=== PATIENT | female | born 1975 | race Two or more races ===

== ENCOUNTER 2025-05-06 18:13 | Emergency (ER) | payer MEDICAID, SELFPAY ==
--- NOTE | 2025-05-06 18:20 | EKG_ITS ---
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
[2025-05-06 18:23] VITALS: BP 135/85; PULSE 75; RESP 19; TEMP 36.7; O2SAT 95
[2025-05-06 18:24] VITALS: BMI 28.8
--- NOTE | 2025-05-06 18:35 | XR_ITS ---
Examination: Transvaginal ultrasound of the pelvis, complete Technique: Transvaginal sonographic images pelvis performed using de la cruz scale imaging Exam date and time: May 06, 2025 1947 hours INDICATIONS: Heavy vaginal bleeding 1 year FINDINGS: Uterus 11.7 cm uterine fundal mass 5.4 x 4.2 x 5.1 cm Ovaries obscured by bowel gas IMPRESSION: Findings most consistent with large area of uterine fibroid degeneration, recommend 3-6-month follow-up transvaginal sonography to document the stability of this lesion.
--- NOTE | 2025-05-06 18:35 | PD.EDRME ---
Rapid Medical Screening Exam [facility] Arrival date/time: 05/06/25 18:13 49F with history of heavy menstrual cycles presents to ED with dizziness and fatigue; patient is currently on cycle. Patient has not needed a blood transfusion before. No recent pelvic US. Chief Complaint: Dizziness Vital signs: Vital Signs Temperature 98.0 F 05/06/25 18:23 Pulse Rate 75 05/06/25 18:23 Respiratory Rate 19 05/06/25 18:23 Blood Pressure 135/85 H 05/06/25 18:23 Pulse Oximetry (%) 95 05/06/25 18:23 Oxygen Delivery Method Room Air 05/06/25 18:23
[2025-05-06 18:59] LABS: Basophils # (Auto) 0.1 Thou/mm3 (0.0-0.2); Basophils % (Auto) 1 % (0-2.5); Eosinophils # (Auto) 0.2 Thou/mm3 (0.0-0.5); Eosinophils % (Auto) 2 % (0-10); Hematocrit 28.0 % (36.0-46.0); Immature Granulocytes Auto 0.03 Thou/mm3 (0.00-0.00); Lymphocytes # (Auto) 2.6 Thou/mm3 (1.0-4.8); Lymphocytes % (Auto) 27 % (10-50); Mean Corpuscular HGB Conc 30.7 g/dl (31.0-37.0); Mean Corpuscular Hemoglobin 21.6 pg (25.0-35.0); Mean Corpuscular Volume 70 fL (80-100); Monocytes # (Auto) 0.8 Thou/mm3 (0.0-0.8); Monocytes % (Auto) 8 % (0-12); Neutrophils # (Auto) 5.8 Thou/mm3 (1.8-7.7); Neutrophils % (Auto) 61 % (37-80); Nucleated Red Blood Cell # 0.00 Thou/mm3 (0.00-0.00); Nucleated Red Blood Cell % 0 /100 WBC (0); Platelet Count 319 Thou/mm3 (140-440); RDW Standard Deviation 41.9 fL (36.4-46.3); Red Blood Count 3.99 Miln/mm3 (4.00-5.20); White Blood Count 9.5 Thou/mm3 (3.6-11.0)
[2025-05-06 19:11] LABS: INR 0.9 (0.9-1.3); Partial Thromboplastin Time 27.5 Seconds (22.0-36.0); Prothrombin Time 10.1 Seconds (9.0-12.2)
[2025-05-06 19:23] LABS: Hemoglobin 8.6 g/dL (12.0-16.0)
[2025-05-06 19:27] LABS: Albumin, Serum 4.5 gm/dL (3.5-5.0); Albumin/Globulin Ratio 1.7 (1.2-2.2); Alkaline Phosphatase 63 U/L (46-116); Anion Gap 9 (7-16); Aspartate Amino Transferase 21 U/L (0-34); BUN/Creatinine Ratio 27 Ratio (12-20); Bilirubin,Total 0.3 mg/dL (0.3-1.2); Blood Urea Nitrogen 19 mg/dL (9-23); Calcium 9.3 mg/dL (8.3-10.6); Calcium (Corrected) 9.3 mg/dL (8.5-10.1); Carbon Dioxide 26.5 mMol/L (20.0-31.0); Chloride 103 mMol/L (98-107); Creatinine (Component) 0.7 mg/dL (0.6-1.3); Estimated Creatinine Clearance 100.7 mL/min (>60); Globulin 2.7 gm/dL (2.3-3.5); Glucose 113 mg/dL (74-106); Osmolality,Calculated 278 (275-295); Potassium 4.0 mMol/L (3.4-5.1); Sodium 138 mMol/L (136-145); Total Protein 7.2 gm/dL (5.7-8.2); eGFR > 60 See Note
[2025-05-06 19:40] LABS: Amphetamine/Methamp Scrn,U Negative (Negative); Barbiturate Screen,Urine Negative (Negative); Benzodiazepines Screen,Urine Negative (Negative); Benzoylecgonine Screen, Ur Negative (Negative); Fentanyl Screen,Urine Negative (Negative); Opiate Screen,Urine Negative (Negative); THC Screen,Urine Negative (Negative)
[2025-05-06 19:40] LABS: Alanine Aminotransferase 11 U/L (10-49)
[2025-05-06 19:48] LABS: HCG Qualitative,Urine Negative
--- NOTE | 2025-05-06 21:19 | PD.EDRME ---
Rapid Medical Screening Exam E Arrival date/time: 05/06/25 18:13 05/06/25 18:13 49F with history of heavy menstrual cycles presents to ED with dizziness and fatigue; patient is currently on cycle. Patient has not needed a blood transfusion before. No recent pelvic US. Chief Complaint: Dizziness Vital signs: Vital Signs Temperature 98.0 F 05/06/25 18:23 Pulse Rate 75 05/06/25 18:23 Respiratory Rate 19 05/06/25 18:23 Blood Pressure 135/85 H 05/06/25 18:23 Pulse Oximetry (%) 95 05/06/25 18:23 Oxygen Delivery Method Room Air 05/06/25 18:23 E Narrative: 05/06/25 18:13 49F with history of heavy menstrual cycles presents to ED with dizziness and fatigue; patient is currently on cycle. Patient has not needed a blood transfusion before. No recent pelvic US.
--- NOTE | 2025-05-06 21:57 | EDNOTE_ITS ---
ED Dizzyness RME/HPI General Chief Complaint: Dizziness Stated Complaint: DIZZY, NAUSEA, STARTED TRANEXAMIC ACID TODAY Arrival date/time: 05/06/25 18:13 RME / HPI RME / HPI Narrative: 05/06/25 18:13 49F with history of heavy menstrual cycles presents to ED with dizziness and fatigue; patient is currently on cycle. Patient has not needed a blood transfusion before. No recent pelvic US. Dr. Rose?s Main ED Evaluation: 49yo female with a history of heavy menstrual cycles, anemia presents to the ED for complaints of dizziness and generalized weakness. Patient states she's had heavy menstrual cycles for years and is currently taking iron pills. Patient is currently menstruating and states she felt dizzy and generally weak today. She denies any other associated symptoms. Patient does have an appointment with her CHILDR[facility]'S ENTERTAINER on 05/25/25. Related Data Allergies Allergy/AdvReac Type Severity Reaction Status Date / Time No Known Allergies Allergy Verified 05/06/25 18:19 Review of Systems Review of Systems Systems Reviewed: All systems reviewed, normal except as documented Past Medical History Social History SMOKING STATUS: Never smoker ED Exam Narrative Physical exam: Generally patient is alert and in no obvious distress, heart regular rate and rhythm, lungs clear to auscultation equal bilaterally, abdomen soft bowel sounds present nondistended nontender, neurologic exam shows no focal motor deficits. [place]mie Coma Scale is 15. Skin is warm pale and dry. Extremities show no edema. Course Quality Measures none Orders Category Date Time Status EKG (ED ONLY) *Do not use* NOW Care 05/06/25 18:20 Completed EKG (ED Only) Stat Exams 05/06/25 18:20 Draft US transvaginal Stat Exams 05/06/25 18:35 Completed Antibody Identification Stat Lab 05/06/25 18:46 Results CBC Stat Lab 05/06/25 18:46 Completed CMP [Comprehensive Metabolic Panel] Stat Lab 05/06/25 18:46 Completed Drug Screen,Urine Stat Lab 05/06/25 19:00 Completed HCG Qualitative,Urine Stat Lab 05/06/25 19:00 Completed INR [Prothrombin Time with INR] Stat Lab 05/06/25 18:46 Completed PTT [Partial Thromboplastin Time] Stat Lab 05/06/25 18:46 Completed Type and Screen Stat Lab 05/06/25 18:46 Results Vital Signs Vital signs: Vital Signs Temperature 98.0 F 05/06/25 18:23 Pulse Rate 75 05/06/25 18:23 Respiratory Rate 19 05/06/25 18:23 Blood Pressure 135/85 H 05/06/25 18:23 Pulse Oximetry (%) 95 05/06/25 18:23 Oxygen Delivery Method Room Air 05/06/25 18:23 Dizziness MDM Narrative MDM Narrative:: Scribe Attestation: 05/06/25 - Steff Zuniga am scribing for and in the presence of Dr. Rose. Hemoglobin is 8.6. It is a microcytic anemia. Patient was just started on iron. She has an [facility]S [facility] appointment in the next 2 weeks. She has been bleeding for years. Patient most likely will need a hysterectomy at some time. Pelvic ultrasound showed no evidence for a 5 cm fibroid. Otherwise unremarkable. Patient data External records reviewed:: [facility] previous records (Per chart review, patient has no previous ED visits or admissions to this facility.) Clinical information provided by:: patient Social determinants that could affect healthcare access:: none Patient has the following chronic illnesses:: none How is presenting disease/condition affected by chronic disease/condition?: no chronic disease Evaluation data The following diagnostics were reviewed and interpreted by me:: lab results and radiology exam(s) Lab and/or radiology exams considered but not ordered:: none Interpretation Summary: [facility] Report Signed Patient: ROSEANNE BOTELLO Record#: [id number] Birthdate: 1975 Age/Sex: 49 / F Location: [facility] Attending Dr: Ordering Physician: Alfredo Hsu PA-C Date of Service: 05/06/25 Procedure(s): US transvaginal Accession Number(s): [id number] cc: Alber Grande MD; Yoseph Patel MD; Alfredo Hsu PA-C~ Examination: Transvaginal ultrasound of the pelvis, complete Technique: Transvaginal sonographic images pelvis performed using de la cruz scale imaging Exam date and time: May 06, 2025 1947 hours INDICATIONS: Heavy vaginal bleeding 1 year FINDINGS: Uterus 11.7 cm uterine fundal mass 5.4 x 4.2 x 5.1 cm Ovaries obscured by bowel gas IMPRESSION: Findings most consistent with large area of uterine fibroid degeneration, recommend 3-6-month follow-up transvaginal sonography to document the stability of this lesion. Dictated By: Yoseph Patel MD Signed By: <Electronically signed by Yoseph Patel MD in OV> 05/06/25 7306 Medications / Prescriptions Medications or Prescriptions considered but not ordered:: none Medication administrations:: none Consultations Consultation(s) initiated? (list below): No Diagnosis Dizziness Differential Diagnosis: other (See MDM) Most likely diagnosis given after review of the tests above:: see clinical impression below Admission Indicated Admission indicated?: not indicated Admission Request Was there a request for admission?: No Disposition Plan Disposition Plan: Discharge Discharge Attestation Discharge Attestation: The patient and all family members were given an opportunity to ask questions and understood the discharge instructions. Discharge instructions specifically effects, indications for sooner follow up or return to the emergency department, and the expected course of current diagnosis. Patient condition: Stable Discharge Plan Plan Patient Disposition: HOME (Self Care) Prescriptions/Referrals Referrals: Alber Grande MD [Primary Care Provider, Family Practice] - In 1 week Problem List Clinical Impression: Microcytic anemia, Vaginal bleeding, Dizziness Patient/Caregiver Discharge Instructions Education Materials: ED Anemia, Iron-Deficiency (Adult), ED Dysfunctional Uterine Bleeding Additional Instructions: Keep your [facility]ILDR[facility]S [facility]TER[facility] appointment. Make sure that you take your iron. Keep well- hydrated. Print Language: Polish Stand Alone Forms: Roxy Award Info., Work/School Release, Patient Portal Info Letter
[2025-05-06 22:11] VITALS: BP 129/69; PULSE 67; RESP 17; TEMP 36.6; O2SAT 99
--- NOTE | 2025-05-06 22:12 | PD.EDADDENDU ---
Emergency Room Addendum Addendum Narrative: EKG done at 6:25 PM shows normal sinus rhythm at rate of 75 without ischemic change or ectopy.
== END 2025-05-06 22:19 | disposition home or self-care (01) ==
PROVIDERS: Physician Assistant; Emergency Provider Emergency Medicine; PCP Family Medicine
DX: N92.0 Excessive and frequent menstruation with regular cycle (principal); D50.9 Iron deficiency anemia, unspecified
CPT/HCPCS: 36415; 76830; 80053; 80307; 81025; 85025; 85610; 85730; 86850; 86870; 86900; 86901; 93005; 99283